=== PATIENT | female | born 1990 | race African-American/Black ===

== ENCOUNTER 2018-06-30 08:09 | Emergency (ER) | payer OTHER ==
[~2018-06-30] VITALS: Ht 172.7 cm; Wt 65.8 kg
[2018-06-30 09:01] VITALS: BP 140/82
[2018-06-30] MEDS ORDERED: ACETAMINOPHEN 500 MG TAB PO ONE (09:15)
== END 2018-06-30 10:32 | disposition home or self-care (01) ==
LOC: ER 08:09
DX: S16.1XXA Strain of muscle, fascia and tendon at neck level, initial encounter (principal); S80.02XA Contusion of left knee, initial encounter; H11.32 Conjunctival hemorrhage, left eye; V43.52XA Car driver injured in collision with other type car in traffic accident, initial encounter; Y93.I9 Activity, other involving external motion; Y92.488 Other paved roadways as the place of occurrence of the external cause; Y99.8 Other external cause status
CPT/HCPCS: 72040; 73562; 81025

== ENCOUNTER 2018-07-02 09:19 | Emergency (ER) | payer OTHER ==
[~2018-07-02] VITALS: Ht 172.7 cm; Wt 65.8 kg
[2018-07-02 09:21] VITALS: BP 135/84
[2018-07-02] MEDS ORDERED: TETRACAINE HCL 0.5% OPTH(EYE) SOLN 4ML ONE (09:48)
[2018-07-02] MEDS ORDERED: FLUORESCEIN SOD 1 MG TEST STRIP ONE (09:49)
[2018-07-02] MEDS ORDERED: FLUORESCEIN SOD 1 MG TEST STRIP OP ONE (10:00)
[2018-07-02] MEDS ORDERED: TETRACAINE HCL 0.5% OPTH(EYE) SOLN 4ML EACHEYE ONE (10:00)
== END 2018-07-02 10:25 | disposition home or self-care (01) ==
LOC: ER 09:19
DX: S05.02XA Injury of conjunctiva and corneal abrasion without foreign body, left eye, initial encounter (principal); Z77.098 Contact with and (suspected) exposure to other hazardous, chiefly nonmedicinal, chemicals; Z88.6 Allergy status to analgesic agent; V43.52XA Car driver injured in collision with other type car in traffic accident, initial encounter; W22.11XA Striking against or struck by driver side automobile airbag, initial encounter; Y93.89 Activity, other specified; Y92.488 Other paved roadways as the place of occurrence of the external cause; Y99.8 Other external cause status

== ENCOUNTER 2018-07-27 15:07 | Emergency (ER) | payer OTHER ==
[~2018-07-27] VITALS: Ht 172.7 cm; Wt 65.8 kg
[2018-07-27 15:49] VITALS: BP 103/63
== END 2018-07-27 16:09 | disposition home or self-care (01) ==
LOC: ER 15:08
DX: R19.7 Diarrhea, unspecified (principal); Z88.8 Allergy status to other drugs, medicaments and biological substances

== ENCOUNTER 2018-10-15 08:01 | Emergency (ER) | payer OTHER ==
[~2018-10-15] VITALS: Ht 172.7 cm; Wt 69.9 kg
[2018-10-15 08:20] VITALS: BP 131/65
[2018-10-15 09:02] LABS: Urine Bacteria FEW /hpf (None Seen); Urine Blood TRACE /uL (Negative); Urine Mucus FEW (None Seen); Urine Specific Gravity 1.019 (1.001-1.035); Urine WBC 13 /hpf (0 - 5)
[2018-10-15 09:04] LABS: Basophils # (auto) 0 uL; Basophils % (auto) 0.3 % (0.0-2.0); Eosinophils # (auto) 0.1 uL; Eosinophils % (auto) 1.5 % (0.0-7.0); Hematocrit 35.8 % (36.0-46.0); Hemoglobin 12.2 g/dL (12.2-16.2); Lymphocytes % (auto) 29.5 % (10.0-50.0); Mean Corpuscular Hemoglobin 31.4 pg (28.0-32.0); Mean Corpuscular Volume 92.3 fL (80.0-100.0); Monocytes # (auto) 0.5 uL; Monocytes % (auto) 7.5 % (0.0-12.0); Neutrophils # (auto) 4.1 uL; Neutrophils % (auto) 61.2 % (37.0-80.0); Platelet Count (auto) 197 10^3/uL (140-450); Red Blood Cells 3.87 10^6/uL (4.0-5.20); Red Cell Distribution Width 14.3 % (11.8-14.3); White Blood Cell 6.7 10^3/uL (4.4-10.8)
== END 2018-10-15 10:50 | disposition home or self-care (01) ==
LOC: ER 08:05
DX: O23.41 Unspecified infection of urinary tract in pregnancy, first trimester (principal); Z3A.08 8 weeks gestation of pregnancy
CPT/HCPCS: 36415; 76801; 81001; 81002; 81025; 84702; 85025

== ENCOUNTER 2018-11-23 01:23 | Emergency (ER) | payer MEDICAID, OTHER ==
[~2018-11-23] VITALS: Ht 172.7 cm; Wt 73.9 kg
[2018-11-23 01:40] VITALS: BP 124/80
[2018-11-23 02:03] LABS: Basophils # (auto) 0.1 uL; Basophils % (auto) 0.9 % (0.0-2.0); Eosinophils # (auto) 0.1 uL; Eosinophils % (auto) 1.2 % (0.0-7.0); Hematocrit 36.5 % (36.0-46.0); Hemoglobin 12.4 g/dL (12.2-16.2); Lymphocytes # (auto) 2.3 uL; Lymphocytes % (auto) 24.5 % (10.0-50.0); Mean Corpuscular Hemoglobin 31.7 pg (28.0-32.0); Mean Corpuscular Volume 93.3 fL (80.0-100.0); Monocytes # (auto) 0.6 uL; Monocytes % (auto) 6.2 % (0.0-12.0); Neutrophils # (auto) 6.3 uL; Neutrophils % (auto) 67.2 % (37.0-80.0); Platelet Count (auto) 221 10^3/uL (140-450); Red Blood Cells 3.91 10^6/uL (4.0-5.20); Red Cell Distribution Width 14.7 % (11.8-14.3); White Blood Cell 9.3 10^3/uL (4.4-10.8)
[2018-11-23 02:03] LABS: Urine Amorphous Crystal FEW /hpf (None Seen); Urine Bacteria FEW /hpf (None Seen); Urine Blood 2+ /uL (Negative); Urine WBC 2 /hpf (0 - 5)
[2018-11-23 02:16] LABS: Albumin 3.3 g/dL (3.4-5.0); BUN/Creatinine Ratio 10.3; Calcium 8.9 mg/dL (8.5-10.1); Potassium 3.8 mmol/L (3.5-5.1)
[2018-11-23 02:19] LABS: Bilirubin, Total 0.4 mg/dL (0.2-1.0); Total Protein 7.1 g/dL (6.4-8.2)
== END 2018-11-23 04:13 | disposition left against medical advice (07) ==
LOC: ER 01:26
DX: N93.9 Abnormal uterine and vaginal bleeding, unspecified (principal); Z53.21 Procedure and treatment not carried out due to patient leaving prior to being seen by health care provider
CPT/HCPCS: 36415; 80053; 81001; 84702; 85025

== ENCOUNTER 2019-05-26 19:01 | Observation (INO) | payer MEDICAID | END 2019-05-26 20:36 | disposition home or self-care (01) | DRG 566 | LOC: LDRP 19:01 | PROVIDERS: ADMIT Specialist; ATTEND Specialist | DX: O48.0 Post-term pregnancy (principal); Z3A.40 40 weeks gestation of pregnancy | CPT/HCPCS: 59025; 76818; 81002; G0378 ==

== ENCOUNTER 2019-05-30 13:55 | Observation (INO) | payer MEDICAID ==
[~2019-05-30] VITALS: Ht 172.7 cm; Wt 97.5 kg
[2019-05-30] MEDS ORDERED: PREN-96 PO (14:27)
[2019-05-30] MEDS ORDERED: FERR-7 PO (14:28)
== END 2019-05-30 15:55 | disposition home or self-care (01) | DRG 566 ==
LOC: LDRP 13:55
PROVIDERS: ADMIT Obstetrics & Gynecology; ATTEND Obstetrics & Gynecology
DX: O48.0 Post-term pregnancy (principal); Z3A.40 40 weeks gestation of pregnancy; Z87.891 Personal history of nicotine dependence
CPT/HCPCS: 59025; 76818; 81002; G0378